=== PATIENT | male | born 1990 | race Two or more races ===

== ENCOUNTER → 2023-03-09 | Outpatient (CLI) | payer MEDICAID | END | disposition home or self-care (01) | LOC: Rad HDHVI 14:29 | PROVIDERS: ATTEND Internal Medicine Cardiovascular Disease | DX: I34.0 Nonrheumatic mitral (valve) insufficiency (principal); I11.9 Hypertensive heart disease without heart failure | CPT/HCPCS: 93306 ==

== ENCOUNTER → 2023-03-16 | Outpatient (CLI) | payer MEDICAID ==
[~2023-03-16] VITALS: Ht 170.2 cm; Wt 109.3 kg
== END | disposition home or self-care (01) ==
LOC: Rad HDHVI 13:01
PROVIDERS: ATTEND Internal Medicine Cardiovascular Disease
DX: I10 Essential (primary) hypertension (principal); Z98.890 Other specified postprocedural states; Z79.899 Other long term (current) drug therapy
CPT/HCPCS: 93017

== ENCOUNTER 2025-10-20 12:36 | Emergency (ER) | payer MEDICAID ==
[~2025-10-20] VITALS: Ht 170.2 cm; Wt 113.6 kg
--- NOTE | 2025-10-20 13:51 | ED.PDOC ---
GI ASSESSMENT HPI Comments 35 year old male presents to the ED via EMS with a chief complaint of abdominal pain onset today. Per EMS, patient has been experiencing diffused abdominal pain as well as nausea, vomiting, chills, dizziness. Patient had pozole yesterday for dinner, woke up experiencing these symptoms. Denies fever, headache, diarrhea, dysuria, hematuria, hematemesis. No other symptoms or modifying factors present at this time. Chief Complaint: Nausea/Vomiting Time Seen by MD: 13:40 Reviewed Notes: Medications, Allergies Allergies: Coded Allergies: No Known Drug Allergy (Verified Allergy, Unknown, 03/16/23) Information Source: Patient, Emergency Med Personnel Mode of Arrival: EMS Timing: Hours Duration: Since onset Prehospital treatment: None Quality: None Severity: Moderate Recent: None Recent Hx of: None Pain Location: Diffuse Modifying Factors: Nothing Associated sign and symptoms: Nausea, Vomiting, Abdominal Pain Past Medical History PAST MEDICAL HISTORY: Denies Surgical History (Other): heart surgery Family History Family History: Reviewed,noncontributory to illness, No family hx of Cancer, No family hx of DM, No family hx of Heart megan, No family hx of HTN, No family hx ofKidney megan, No family hx of Liver megan, No family hx of Lung megan, No family hx of Stroke Social History Smoker: Non-Smoker Alcohol: Denies ETOH Use Drugs: Denies Drug Use Lives In: Home Constitutional: reports: chills; denies: diaphoresis, fatigue, fever, malaise, sweats, weakness, others EENTM: denies: blurred vision, double vision, ear bleeding, ear discharge, ear drainage, ear pain, ear ringing, eye pain, eye redness, hearing loss, mouth pain, mouth swelling, nasal discharge, nose bleeding, nose congestion, nose pain, photophobia, tearing, throat pain, throat swelling, voice changes, others Respiratory: denies: cough, hemoptysis, orthopnea, SOB at rest, shortness of breath, SOB with excertion, stridor, wheezing, others Cardiovascular: denies: chest pain, dizzy spells, diaphoresis, Dyspnea on ex ertion, edema, irregular heart beat, left arm pain, lightheadedness, palpitations, PND, syncope, others Gastrointestinal: reports: abdominal pain, nausea, vomiting; denies: abdomen distended, blood streaked bowels, constipated, diarrhea, dysphagia, difficulty swallowing, hematemesis, melena, poor appetite, poor fluid intake, rectal bleeding, rectal pain, others Genitourinary: denies: burning, dysuria, flank pain, frequency, hematuria, incontinence, penile discharge, penile sore, pain, testicle pain, testicle swelling, urgency, others Neurological: reports: dizziness; denies: fainting, headache, left sided numbn ess, left sided weakness, numbness, paresthesia, pre-existing deficit, right sided numbness, right sided weakness, seizure, speech problems, tingling, tremors, weakness, others Musculoskeletal: denies: back pain, gout, joint pain, joint swelling, muscle pain, muscle stiffness, neck pain, others Integumetry: denies: bruises, change in color, change in hair/nails, dryness, laceration, lesions, lumps, rash, wounds, others Allergic/Immunocompromised: denies: Difficulty Healing, Frequent Infections, Hives, Itching, others Hematologic/Lymphatic: denies: anemia, blood clots, easy bleeding, easy bruising, swollen glands, others Endocrine: denies: excessive hunger, excessive sweating, excessive thirst, excessive urination, flushing, intolerance to cold, intolerance to heat, unexplained weight gain, unexplained weight loss, others Psychiatric: denies: anxiety, bipolar disorder, depression, hopeless, panic disorder, schizophrenia, sleepless, suicidal, others All Other Systems: Reviewed and Negative Physical Exam General Appearance: Normal HEENT: Normal ENT Inspection, Pharynx Normal, TMs Normal Neck: Full Range of Motion, Non-Tender, Normal, Normal Inspection Respiratory: Chest Non-Tender, Lungs Clear, No Accessory Muscle Use, No Respiratory Distress, Normal Breath Sounds Cardiovascular: No Edema, No JVD, No Murmur, No Gallop, Normal Peripheral Pulses, Regular Rate/Rhythm Breast Exam: Deferred Gastrointestinal: No Organomegaly, No Pulsatile Mass, Normal Bowel Sounds, Tenderness (diffused) Genitalia: Deferred Pelvic: Deferred Rectal: Deferred Extremities: No calf tenderness, Normal capillary refill, Normal inspection, Normal range of motion, Non-tender, No pedal edema Musculoskeletal : Apperance: Normal Neurologic: Alert, finishing frame runner II-XII nml as Tested, No Motor Deficits, Normal Affect, Normal Mood, No Sensory Deficits Cerebellar Function: Normal Reflexes: Normal Skin: Dry, Normal Color, Warm Lymphatic: No Adenopathy Was a procedure done? Was a procedure done?: No GI differential Dx Differential Diagnosis: Gastroenteritis, Dehydration, Electrolyte Imbalance, Food Poisoning, Bacterial, Viral X-Ray, Labs, Meds, VS Vital Signs Date Time Temp Pulse Resp B/P (MAP) Pulse Ox O2 Delivery O2 Flow Rate FiO2 10/20/25 15:51 98.4 81 14 143/86 (105) 99 98.4 10/20/25 15:50 Room Air* 0 21 10/20/25 12:41 97.7 82 18 139/71 100 97.7 Lab Test 10/20/25 14:05 Range/Units White Blood Count 13.7 H 4.4-10.8 10^3/uL Red Blood Count 5.31 4.5-5.90 10^6/uL Hemoglobin 14.7 13.5-17.5 g/dL Hematocrit 44.3 41.0-53.0 % Mean Corpuscular Volume 83.5 80.0-100.0 fL Mean Corpuscular Hemoglobin 27.7 L 28.0-32.0 pg Mean Corpuscular Hemoglobin Concent 33.2 32.0-36.0 g/dL Red Cell Distribution Width 14.2 11.8-14.3 % Platelet Count 258 140-450 10^3/uL Mean Platelet Volume 7.4 6.9-10.8 fL Neutrophils (%) (Auto) 88.0 H 37.0-80.0 % Lymphocytes (%) (Auto) 8.6 L 10.0-50.0 % Monocytes (%) (Auto) 2.7 0.0-12.0 % Eosinophils (%) (Auto) 0.1 0.0-7.0 % Basophils (%) (Auto) 0.6 0.0-2.0 % Neutrophils # (Auto) 12.1 H 1.6-8.6 10 ^3/uL Lymphocytes # (Auto) 1.2 0.4-5.4 10 ^3/uL Monocytes # (Auto) 0.4 0-1.3 10 ^3/uL Eosinophils # (Auto) 0 0-0.8 10 ^3/uL Basophils # (Auto) 0.1 0-0.2 10 ^3/uL Nucleated Red Blood Cells 0.0 % Sodium Level 140 136-145 mmol/L Potassium Level 3.5 3.5-5.1 mmol/L Chloride Level 106 98-107 mmol/L Carbon Dioxide Level 25 20-31 mmol/L Anion Gap 9 5-15 Blood Urea Nitrogen 12 9-23 mg/dL Creatinine 0.92 0.700-1.30 mg/dL Glomerular Filtration Rate Calc 110 >90 mL/min BUN/Creatinine Ratio 13.0 10.0-20.0 Serum Glucose 108 H 74-106 mg/dL Calcium Level 8.3 L 8.7-10.4 mg/dL Current Medications Medications (Trade) Dose Ordered Sig/Dane Route Start Time Stop Time Status Last Admin Sodium Chloride 1,000 ml @ 1,000 mls/hr Q1H ONCE IV 10/20/25 13:45 10/20/25 14:44 DC 10/20/25 15:39 Ondansetron HCl (Zofran) 4 mg ONCE ONCE IV 10/20/25 13:45 10/20/25 13:46 DC 10/20/25 15:38 Famotidine (Pepcid Injection) 20 mg ONCE ONCE IV 10/20/25 13:45 10/20/25 13:46 DC 10/20/25 15:38 [place] [address] Ph: [phone] DIAGNOSTIC IMAGING Diagnostic Imaging Report : [id number] Signed PATIENT: LOUISA PAZ AACCT: [id number] UNIT: [id number] : 1990 LOC: ER ROOM / BED: / AGE / SEX: 35 / M ADM STATUS: REG ER SERVICE 1344 ORDERING PHYSICIAN: REAGAN SHI MD PROCEDURE(s): CXRP - CHEST PORTABLE REASON: epigastric pain ORDER NUMBER(s): [id number], ACCESSION NUMBER(s): [id number] CHEST RADIOGRAPH Indication: epigastric pain Technique: Single frontal view of the chest was obtained. Comparison: None Findings: Median sternotomy. Pulmonary vascular congestion. No significant pleural effusion. No pneumothorax. Mildly enlarged cardiomediastinal silhouette. IMPRESSION: Pulmonary vascular congestion. ATED BY: FREDDIE ALEXANDRA MD DICTATED DATE/TIME: 10/20/251432 SIGNED BY: FREDDIE ALEXANDRA MD SIGNED DATE/TIME: 10/20/251432 CC: Time of 1ST Reevaluation: 14:10 Reevaluation 1ST: Unchanged Patient Education/Counseling: Diagnosis, Treatment, Prognosis Family Education/Counseling: No Family Present SEPSIS Sepsis Screen Date sepsis recognized/suspect: Oct 20, 2025 Time Sepsis recognized/suspect: 125 Recent Procedure: No On Antibiotic Therapy: No Respiratory Rate >20: No Heart Rate >90: No Temp<36 C (96.8 F) or >38.3 C: No SBP <90 or MAP <65 mmHG: No New Acute Mental Status Change: No Is the patient on CPAP, BIPAP,: No Physician Orders Urinalysis (10/20/25 13:44) Chest Portable (10/20/25 13:44) Vital Signs Date Time Temp Pulse Resp B/P (MAP) Pulse Ox O2 Delivery O2 Flow Rate FiO2 10/20/25 15:51 98.4 81 14 143/86 (105) 99 98.4 10/20/25 15:50 Room Air* 0 21 10/20/25 12:41 97.7 82 18 139/71 100 97.7 Laboratory Tests Test 10/20/25 14:05 White Blood Count 13.7 10^3/uL (4.4-10.8) H Medications Medications Dose Ordered Sig/Dane Route Start Time Stop Time Status Last Admin Dose Admin Famotidine 20 mg ONCE ONCE IV 10/20/25 13:45 10/20/25 13:46 DC 10/20/25 15:38 Ondansetron HCl 4 mg ONCE ONCE IV 10/20/25 13:45 10/20/25 13:46 DC 10/20/25 15:38 Sodium Chloride 1,000 ml @ 1,000 mls/hr Q1H ONCE IV 10/20/25 13:45 10/20/25 14:44 DC 10/20/25 15:39 Departure 1 Departure Time of Disposition: 16:35 (Patient likely with gastroenteritis. Patient is now tolerating p.o.. We will discharge patient home with outpatient follow up) Impression: Primary Impression: Gastroenteritis Disposition: 01 HOME / SELF CARE / HOMELESS Condition: Stable Additional Instructions: DISCHARGE INSTRUCTIONS Diagnosis: Viral Gastroenteritis ("Stomach Flu") Your exam and lab results were reassuring and did not show signs of a serious bacterial infection or severe dehydration. This is likely a viral infection that needs to run its course. HOME CARE INSTRUCTIONS 1. Hydration (Most Important): - Your goal is to prevent dehydration. Drink clear liquids in small amounts frequently. - Good options: Water, Pedialyte, Gatorade (diluted with water), hermelinda maryan, or broth. - Avoid: Alcohol, caffeine, and dairy products until you are feeling better. 2. Diet: - Start with a clear liquid diet. - Once your nausea settles, slowly advance to bland foods (the "BRAT" diet: Bananas, Rice, Applesauce, [place]). - Avoid spicy, greasy, or heavy meals for the next few days. 3. Medications: - You may take Tylenol (Acetaminophen) for fevers or body aches. - Avoid NSAIDs (Motrin/Advil/Ibuprofen) if you are having stomach pain, as these can irritate the stomach lining. - If you were prescribed anti-nausea medication (Zofran/Ondansetron), take it exactly as directed. 4. Hygiene: - Viral gastroenteritis is very contagious. Wash your hands frequently with soap and water, especially after using the restroom and before eating. RETURN TO THE EMERGENCY DEPARTMENT IF: - You cannot keep any liquids down for more than 12-24 hours. - You see blood or dark/tarry substance in your vomit or stool. - You have severe abdominal pain, especially in the lower right side. - You feel dizzy, lightheaded, or pass out (faint). - You have a high fever (over 103F) or a fever that does not go down with Tylenol. FOLLOW UP: - Follow up with your Primary Care Doctor if symptoms do not improve within 3-5 days. e-Prescriptions Ondansetron Odt 4MG Tab (ZOFRAN PO) 4 Mg Tb 4 MG PO QID PRN for 4 Days, #16 TAB ODT TAB-DISSOLVE IN MOUTH, THEN SWALLOW Prov: REAGAN SHI MD 10/20/25 Discharged With: Self Critical Care Note Critical Care Time?: No Stability Stability form required: No Heart Score Heart Score: Heart Score Response (Comments) Value History N/A 0 EKG N/A 0 Age N/A 0 Risk Factors N/A 0 Troponin N/A 0 Total 0 I personally scribed for REAGAN SHI MD ([email or web address]) on 10/20/25 at 13:51. Electronically submitted by Galilea Cardoso ([email or web address]). I personally scribed for REAGAN SHI MD ([email or web address]) on 10/20/25 at 16:06. E lectronically submitted by Galilea Cardoso ([email or web address]). REAGAN SHI MD Oct 20, 2025 13:51
[2025-10-20 14:17] LABS: Hematocrit 44.3 % (41.0-53.0); Hemoglobin 14.7 g/dL (13.5-17.5); Mean Corpuscular Hemoglobin 27.7 pg (28.0-32.0); Mean Corpuscular Volume 83.5 fL (80.0-100.0); Nucleated Red Blood Cells % 0.0 %
[2025-10-20 14:26] LABS: Chloride 106 mmol/L (98-107); Sodium 140 mmol/L (136-145)
[2025-10-20 14:27] LABS: Anion Gap 9 (5-15); Carbon Dioxide 25 mmol/L (20-31)
[2025-10-20 14:29] LABS: Calcium 8.3 mg/dL (8.7-10.4); Potassium 3.5 mmol/L (3.5-5.1)
[2025-10-20 14:32] LABS: BUN/Creatinine Ratio 13.0 (10.0-20.0); Blood Urea Nitrogen 12 mg/dL (9-23)
[2025-10-20 14:33] LABS: Glucose 108 mg/dL (74-106)
--- NOTE | 2025-10-20 14:35 | DVH ---
CHEST RADIOGRAPH Indication: epigastric pain Technique: Single frontal view of the chest was obtained. Comparison: None Findings: Median sternotomy. Pulmonary vascular congestion. No significant pleural effusion. No pneumothorax. Mildly enlarged cardiomediastinal silhouette. IMPRESSION: Pulmonary vascular congestion.
[2025-10-20] MEDS: ONDANSETRON HCL 4 MG/2 ML VIAL IV ONE (15:38)
[2025-10-20] MEDS: FAMOTIDINE (10MG/ML) 2ML VL IV ONE (15:38)
[2025-10-20] MEDS: SODIUM CHLORIDE 0.9% 1,000 ML IV ONE (15:39)
[2025-10-20 15:51] VITALS: BP 143/86; PULSE 81; RESP 14; TEMP 98.4; O2SAT 99
[2025-10-20] MEDS ORDERED: ZOFR4T PO (16:36)
[2025-10-20 17:08] LABS: Urine Protein, UAD TRACE (Negative)
== END 2025-10-20 16:55 | disposition home or self-care (01) ==
LOC: EDBD 12:36 → EDUNIT# 12:36 → ER 12:36
DX: K52.9 Noninfective gastroenteritis and colitis, unspecified (principal)
CPT/HCPCS: 36415; 71045; 80048; 81001; 85025; 96361; 96374; 96375; 99284; J2405; J3490; J7030

== ENCOUNTER 2025-10-22 07:23 | Emergency (ER) | payer MEDICAID ==
[~2025-10-22] VITALS: Ht 170.2 cm; Wt 105.9 kg
[~2025-10-22 07:23] MED LIST: ZOFR4T PO
--- NOTE | 2025-10-22 08:09 | ED.PDOC ---
Musculoskeletal HPI Comments A 35 YEAR OLD MALE PRESENTS TO THE ED WITH COMPLAINT OF LEFT LEG/BACK PAIN. PATIENT REPORTS THAT HE HAS BEEN EXPERIENCING LEFT POSTERIOR THIGH/BUTTOCK PAIN WITH ASSOCIATED RIGHT LOWER BACK PAIN SINCE THIS MORNING. 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 PATIENT DENIES FALL, INJURY, DYSURIA, FLANK PAIN, SHORTNESS OF BREATH, CHEST PAIN, ABDOMINAL PAIN, NAUSEA, VOMITING, HEADACHE, OR OTHER COMPLAINTS. NO OTHER SYMPTOMS OR MODIFYING FACTORS AT THIS TIME. PATIENT IS ALERT, ORIENTED X 4, AND HAS STEADY GAIT. Chief Complaint: Lower Extremity Time Seen by MD: 08:06 Reviewed Notes: Nurses Notes, Medications, Allergies Allergies: Coded Allergies: No Known Drug Allergy (Verified Allergy, Unknown, 03/16/23) Home Meds Active Scripts Gabapentin (Gabapentin) 300 Mg Cap, 1 CAP PO BID, #30 CAP Prov:ROSIE JONES 10/22/25 Ibuprofen (Ibuprofen) 800 Mg Tab, 1 TAB PO TID, #30 TAB Prov:ROSIE JONES 10/22/25 Ondansetron Odt 4MG Tab (ZOFRAN PO) 4 Mg Tb, 4 MG PO QID PRN for 4 Days, #16 TAB ODT TAB-DISSOLVE IN MOUTH, THEN SWALLOW Prov:REAGAN SHI MD 10/20/25 Information Source: Patient Mode of Arrival: Ambulatory Location: Left, Right Extremity Location: Back, Leg Timing: Hours Prehospital treatment: None Severity: Mild, Moderate Able to Move Extremity: Yes Bear Weight: Fully Pain: Mild, Moderate Mechanism: Lifting, Using Circumstances: Other Onset of Symptoms: During Exercise Symptoms: Pain DVT Risk Factors: NONE Last Tetanus: Unknown Associated signs and symptoms: Back pain, Leg pain Past Medical History PAST MEDICAL HISTORY: Anxiety, Denies Surgical History (Other): HEART SURGERY 2021 Family History Family History: Reviewed,noncontributory to illness, No family hx of Cancer, No family hx of DM, No family hx of Heart megan, No family hx of HTN, No family hx ofKidney megan, No family hx of Liver megan, No family hx of Lung megan, No family hx of Stroke Social History Smoker: Non-Smoker Alcohol: Denies ETOH Use Drugs: Denies Drug Use Lives In: Home Constitutional: denies: chills, diaphoresis, fatigue, fever, malaise, sweats, weakness, others EENTM: denies: blurred vision, double vision, ear bleeding, ear discharge, ear drainage, ear pain, ear ringing, eye pain, eye redness, hearing loss, mouth pain, mouth swelling, nasal discharge, nose bleeding, nose congestion, nose pain, photophobia, tearing, throat pain, throat swelling, voice changes, others Respiratory: denies: cough, hemoptysis, orthopnea, SOB at rest, shortness of breath, SOB with excertion, stridor, wheezing, others Cardiovascular: denies: chest pain, dizzy spells, diaphoresis, Dyspnea on exertion, edema, irregular heart beat, left arm pain, lightheadedness, palpitations, PND, syncope, others Gastrointestinal: denies: abdomen distended, abdominal pain, blood streaked bowels, constipated, diarrhea, dysphagia, difficulty swallowing, hematemesis, melena, nausea, poor appetite, poor fluid intake, rectal bleeding, rectal pain, vomiting, others Genitourinary: denies: burning, dysuria, flank pain, frequency, hematuria, inco ntinence, penile discharge, penile sore, pain, testicle pain, testicle swelling, urgency, others Neurological: denies: dizziness, fainting, headache, left sided numbness, left sided weakness, numbness, paresthesia, pre-existing deficit, right sided numbness, right sided weakness, seizure, speech problems, tingling, tremors, weakness, others Musculoskeletal: reports: back pain, muscle pain, others (LEFT THIGH PAIN); denies: gout, joint pain, joint swelling, muscle stiffness, neck pain Integumetry: denies: bruises, change in color, change in hair/nails, dryness, laceration, lesions, lumps, rash, wounds, others Allergic/Immunocompromised: denies: Difficulty Healing, Frequent Infections, Hives, Itching, others Hematologic/Lymphatic: denies: anemia, blood clots, easy bleeding, easy bruising, swollen glands, others Endocrine: denies: excessive hunger, excessive sweating, excessive thirst, excessive urination, flushing, intolerance to cold, intolerance to heat, unexplained weight gain, unexplained weight loss, others Psychiatric: reports: anxiety; denies: bipolar disorder, depression, hopeless, panic disorder, schizophrenia, sleepless, suicidal, others All Other Systems: Reviewed and Negative Physical Exam General Appearance: Mild Distress, Obese, Other (ANXIOUS ) HEENT: Normal ENT Inspection, PERRL/EOMI, Pharynx Normal Neck: Full Range of Motion, Non-Tender, Normal, Normal Inspection Respiratory: Chest Non-Tender, Lungs Clear, No Accessory Muscle Use, No Respiratory Distress, Normal Breath Sounds Cardiovascular: No Edema, No JVD, No Murmur, No Gallop, Normal Peripheral Pulses, Regular Rate/Rhythm Breast Exam: Deferred Gastrointestinal: No Organomegaly, Non Tender, No Pulsatile Mass, Normal Bowel Sounds, Soft Genitalia: Deferred Pelvic: Deferred Rectal: Deferred Extremities: No calf tenderness, Normal capillary refill, Normal inspection, Normal range of motion, Non-tender, No pedal edema Musculoskeletal : Location: Bilateral Extremity Location: Back Apperance: Tenderness (AND MUSCLE SPASM ON LOWER BACK, NO BONY TENDERNESS, SWELLING AND DEFORMITY. ) Neurologic: Alert, green chain offbearer II-XII nml as Tested, No Motor Deficits, Normal Affect, Normal Mood, No Sensory Deficits Cerebellar Function: Normal Reflexes: Normal Skin: Dry, Normal Color, Warm Peripheral Pulses: 2+ carotid (R), 2+ carotid (L), 2+ dorsalis pedis (R), 2+ dorsalis pedis (L) Lymphatic: No Adenopathy Was a procedure done? Was a procedure done?: No Differential Diagnosis EXT Differential Diagnosis: Strain, Arthritis, Bursitis, Other (LOWER BACK PAIN WITH SCIATICA ) Other Differential Diagnosis SCIATICA X-Ray, Labs, Meds, VS Vital Signs Date Time Temp Pulse Resp B/P (MAP) Pulse Ox O2 Delivery O2 Flow Rate FiO2 10/22/25 07:25 98.0 70 17 156/99 100 98.0 X-Ray, Labs, Meds, VS Comment EXTERNAL MEDICAL RECORDS REVIEWED: [NONE] INDEPENDENT HISTORIANS: [NONE] SOCIAL DETERMINANTS OF HEALTH: [NONE] LABS ORDERED: NONE REVIEWED AND INTERPRETED RESULTS: L-SPINE XR IMAGING ORDERED: L-SPINE XR INTERPRETED BY ME. NO ACUTE FINDINGS. NO FRACTURES OR DISLOCATION. PENDING RADIOLOGIST REPORT. TREATMENTS ORDERED: TORADOL 60MG IM PROCEDURES PERFORMED: NONE CRITICAL CARE TIME: NONE I HAVE DISCUSSED THE PATIENT WITH THE ATTENDING PHYSICIAN DR. SHI AND HE AGREES WITH THE PATIENT'S PLAN OF CARE AND DISPOSITION. BASED ON HISTORY OF PRESENT ILLNESS, AND PHYSICAL EXAM, PATIENT WILL BE DISCHARGED HOME. DISCUSSED PLAN FOR DISCHARGE HOME WITH RX [MOTRIN AND GABAPEN TIN ]. MEDICATION WARNINGS GIVEN. SHARED DECISION MAKING: DISCUSSED WITH PATIENT THAT THEIR WORKUP WAS NORMAL. PATIENT INSTRUCTED TO FOLLOW UP WITH PRIMARY CARE PROVIDER IN 1-2 DAYS FOR RE- EVALUATION OF SYMPTOMS. PATIENT VERBALIZES UNDERSTANDING TO RETURN TO ED FOR NEW OR WORSENING SYMPTOMS OR IF FOLLOW UP WITH PCP CANNOT BE OBTAINED. PATIENT FEELS COMFORTABLE GOING HOME AT THIS TIME. ALL QUESTIONS ADDRESSED AT TIME OF DISCHARGE. Time of 1ST Reevaluation: 08:35 Reevaluation 1ST: Improved Patient Education/Counseling: Diagnosis, Treatment, Need For Follow Up Family Education/Counseling: Diagnosis, Treatment, Need For Follow Up, No Family Present Medical Screening: No EMC Exist At This Time Departure 1 Departure Time of Disposition: 09:00 Impression: Primary Impression: Low back pain with left-sided sciatica Qualified Codes: M54.42 - Lumbago with sciatica, left side Disposition: 01 HOME / SELF CARE / HOMELESS Condition: Stable Additional Instructions: FOLLOW-UP WITH PCP IN 1 TO 2 DAYS. TAKE MEDICATIONS PRESCRIBED. RETURN TO ED FOR ANY NEW OR WORSENING SYMPTOMS. e-Prescriptions Gabapentin (Gabapentin) 300 Mg Cap 1 CAP PO BID, #30 CAP Prov: ROSIE JONES 10/22/25 Ibuprofen (Ibuprofen) 800 Mg Tab 1 TAB PO TID, #30 TAB Prov: ROSIE JONES 10/22/25 Discharged With: Self Critical Care Note Critical Care Time?: No Stability Stability form required: No Heart Score Heart Score: Heart Score Response (Comments) Value History N/A 0 EKG N/A 0 Age N/A 0 Risk Factors N/A 0 Troponin N/A 0 Total 0 I personally scribed for ROSIE JONES ([email or web address]) on 10/22/25 at 08:09. Electronically submitted by Mitch Veliz ([email or web address]). I personally scribed for ROSIE JONES ([email or web address]) on 10/22/25 at 08:39. Electronically submitted by Mitch Veliz ([email or web address]). ROSIE JONES Oct 22, 2025 08:09
--- NOTE | 2025-10-22 08:48 | DVH ---
INDICATION: LEFT BUTTOCK PAIN TO LEFT THIGH TECHNIQUE: 2 views of the lumbar spine were obtained. COMPARISON: None FINDINGS: There are no acute fractures or subluxations. IMPRESSION: No acute fracture or subluxation.
[2025-10-22] MEDS ORDERED: GABA-1250 PO (08:49)
[2025-10-22] MEDS ORDERED: IBUP-1456 PO (08:49)
[2025-10-22] MEDS: KETOROLAC TROMETH 60MG/2ML VIAL IM ONE (08:54)
[2025-10-22 08:55] VITALS: BP 153/91; PULSE 70; RESP 17; TEMP 98.1; O2SAT 100
== END 2025-10-22 08:57 | disposition home or self-care (01) ==
LOC: ER 07:23
DX: M54.42 Lumbago with sciatica, left side (principal); F41.9 Anxiety disorder, unspecified; Z79.899 Other long term (current) drug therapy; Z79.1 Long term (current) use of non-steroidal anti-inflammatories (NSAID)
CPT/HCPCS: 72100; 96372; 99283; J1885